=== PATIENT | male | born 1990 | race Caucasian/White ===

== ENCOUNTER 2016-08-13 09:02 | Emergency (ER) | payer BC ==
[~2016-08-13] VITALS: Ht 172.7 cm; Wt 75.5 kg
[~2016-08-13 09:02] MED LIST: NO MEDS
[2016-08-13 09:05] VITALS: Ht 172.7 cm; Wt 75.5 kg
--- OUTSIDE RECORDS SUMMARY | 2016-08-13 09:07 | XMS REPORT ---
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
--- OUTSIDE RECORDS SUMMARY | 2016-08-13 09:07 | XMS REPORT | Continuity of Care Document ---
Author Author [facility] Organization [facility] Address Unknown Phone Unavailable Support Name Relationship Address Phone SHIMON GILBERT MD Caregiver [address] [place] [address] [place] [phone] BROOKLYN ARVIZU Next Of Kin [address] [place] [address] Insurance Providers Payer Name Policy Number Subscriber Name Relationship Self Pay Bakari Arvizu Iii 18 Self Advance Directives Directive Response Recorded Date/Time Advanced Directives Type None 02/08/14 1:32pm Problems Medical Problems Problem Onset Date Status 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 Nausea Unknown Active Nausea Unknown Active Sprain of right index finger Unknown Active Contusion of right index finger without damage to nail Unknown Active Contusion of left heel Unknown Active Sprain of left ankle Unknown Active Medications Medication Dose Route Sig Days/Qty Instructions Order Date Discontinued Date Status [None] 06/08/09 09/04/13 Discontinued Hydrocodone Bit/Acetaminophen 1 Tab PO NEEDED 06/10/09 04/01/12 Discontinued [No Known Meds] 02/08/14 Active Social History Social History Problem Response Recorded Date/Time Smoking Status Current every day smoker 09/04/2013 12:45am When did patient START smoking? AGE 15 02/08/2014 1:32pm Chewing Tobacco Status No 09/04/2013 12:45am Hx Substance Use Y SMOKES MARIJUANA OCCAS, IV SPEED AND IV HYDROCODONE 2013 1:32pm Hx Alcohol Use Y 2-3 TIMES A WEEK, "USUALLY JUST BEER", VODKA 02/08/2014 1:32pm Query Response Start Date Stop Date Smoking Status Current every day smoker Hospital Discharge Instructions No hospital discharge instructions. Plan of Care No plan of care. Functional Status Query Response Date Recorded Physical Hygiene Self February 08, 2014 1:32pm Disabilities None February 08, 2014 1:32pm Devices Used None February 08, 2014 1:32pm Dressing Self February 08, 2014 1:32pm Ambulation Self February 08, 2014 1:32pm Diet Self February 08, 2014 1:32pm Mental Status Alert Oriented February 08, 2014 2:46pm Disabilities None February 08, 2014 1:32pm Devices Used None February 08, 2014 1:32pm Physical Hygiene Self February 08, 2014 1:32pm Dressing Self February 08, 2014 1:32pm Ambulation Self February 08, 2014 1:32pm Diet Self February 08, 2014 1:32pm Allergies, Adverse Reactions, Alerts Allergen Type Severity Reaction Status Last Updated No Known Drug Allergies Allergy Unknown Active 02/08/14 Immunizations Name Given Type Hx Influenza Vaccination N REFUSED Historical Hx Pneumococcal Vaccination N REFUSED Historical Hx Tetanus, Diptheria, Pertussis UNKNOWN Historical Hx Influenza Vaccination N REFUSED Historical Hx Tetanus, Diptheria, Pertussis UNKNOWN Historical Vital Signs Acute Vital Signs Vital Response Date/Time Temperature (Fahrenheit) 98.0 deg F (96.8 - 99.1) Temperature (Calculated Celsius) 36.70396 degrees C (36.0 - 37.3) Pulse Rate (adult) 96 bpm (60 - 100) Respiratory Rate 18 breaths/min (10 - 20) O2 Sat by Pulse Oximetry 97 % (90 - 100) Blood Pressure 131/71 mm Hg Height 5 ft 8 in Weight 167 lb Body Mass Index 25.0 kg/m^2 Results Test Source Date Result Interp. Ref. Range Comments Acetaminophen Level April 01, 2012 1:55am < 10 UG/ML L 10-30 TOXIC < 4 HR POST INGESTION: >150 MG/L;TOXIC <12 HR POST INGESTION: >50 MG/L Alanine Aminotransferase (ALT/SGPT) April 01, 2012 12:25pm 273 U/L H 21-72 COMMENT may use blood in lab Albumin April 01, 2012 12:25pm 3.9 G/DL N 3.5-5.0 COMMENT may use blood in lab Albumin/Globulin Ratio April 01, 2012 12:25pm 1.3 RATIO N 1.1-2.2 COMMENT may use blood in lab Alcohol, Quantitative April 01, 2012 1:55am <10 MG/DL - Alkaline Phosphatase April 01, 2012 12:25pm 89 U/L N 38-126 COMMENT may use blood in lab Anion Gap April 01, 2012 12:25pm 8 MEQ/L N 5-15 COMMENT may use blood in lab Aspartate Amino Transf (AST/SGOT) April 01, 2012 12:25pm 122 U/L H 17 -59 COMMENT may use blood in lab BUN/Creatinine Ratio April 01, 2012 12:25pm 14 RATIO N 6-26 COMMENT may use blood in lab Band Neutrophils # April 01, 2012 6:50am 0.5 T/MM3 - Band Neutrophils % April 01, 2012 6:50am 3.0 % N 0-6 Blood Urea Nitrogen April 01, 2012 12:25pm 10.0 MG/DL N 9-20 COMMENT may use blood in lab Calcium Level April 01, 2012 12:25pm 9.0 MG/DL DN 8.4-10.2 COMMENT may use blood in lab Calculated Osmolality April 01, 2012 12:25pm 269 MOSM/KG N 261-280 COMMENT may use blood in lab Carbon Dioxide Level April 01, 2012 12:25pm 24 MEQ/L DN 22-30 COMMENT may use blood in lab Chloride Level April 01, 2012 12:25pm 109 MEQ/L H 98-107 COMMENT may use blood in lab Creatinine April 01, 2012 12:25pm 0.7 MG/DL DL 0.8-1.5 COMMENT may use blood in lab Globulin April 01, 2012 12:25pm 3.0 G/DL N 2.4-3.6 COMMENT may use blood in lab Glucose Level April 01, 2012 12:25pm 78 MG/DL N 75-110 COMMENT may use blood in lab Hematocrit April 01, 2012 6:50am 44.7 % N 41-53 Hemoglobin April 01, 2012 6:50am 14.9 GM/DL N 13.5-17.5 Lymphocytes # (Manual) April 01, 2012 6:50am 3.0 T/MM3 N 1-4.8 Lymphocytes % (Manual) April 01, 2012 6:50am 18.0 % L 23-45 Mean Corpuscular Hemoglobin April 01, 2012 6:50am 27.9 UUG N 26-34 Mean Corpuscular Hemoglobin Concent April 01, 2012 6:50am 33.3 GM/DL N 31-37 Mean Corpuscular Volume April 01, 2012 6:50am 83.6 UM3 N 80-100 Mean Platelet Volume April 01, 2012 6:50am 11.1 UM3 N 9.4-12.4 Monocytes # (Manual) April 01, 2012 6:50am 1.0 T/MM3 H 0-0.8 Monocytes % (Manual) April 01, 2012 6:50am 6.0 % N 0-9.0 Neutrophils # (Manual) April 01, 2012 6:50am 12.0 T/MM3 H 1.8-7.7 Neutrophils % (Manual) April 01, 2012 6:50am 73.0 % H 33-66 Platelet Count April 01, 2012 6:50am 108 T/MM3 DL 130-400 Potassium Level April 01, 2012 12:25pm 4.8 MEQ/L DN 3.6-5 COMMENT may use blood in lab RDW Standard Deviation April 01, 2012 6:50am 41.8 FL N 36.9-50.2 Red Blood Count April 01, 2012 6:50am 5.35 M/MM3 N 4.50-5.90 Salicylates Level April 01, 2012 1:55am < 1.0 MG/DL L 2-20 Sodium Level April 01, 2012 12:25pm 141 MEQ/L N 134-144 COMMENT may use blood in lab Thyroid Stimulating Hormone (TSH) April 01, 2012 12:25pm 1.75 MIU/L N 0.47-4.68 COMMENT may use blood in lab Total Bilirubin April 01, 2012 12:25pm 1.00 MG/DL N 0.20-1.30 COMMENT may use blood in lab Total Protein April 01, 2012 12:25pm 6.9 G/DL N 6.3-8.2 COMMENT may use blood in lab Troponin I April 01, 2012 1:55am < 0.012 ng/ml 0-0.12 Urine Amphetamines Screen April 01, 2012 1:55am Positive NG/ML - Urine Barbiturates Screen April 01, 2012 1:55am Negative NG/ML - Urine Benzodiazepines Screen April 01, 2012 1:55am Negative NG/ML - Urine Bilirubin April 01, 2012 2:00am Negative - Has specimen been collected/obtained? Y Urine Blood April 01, 2012 2:00am Negative - Has specimen been collected/obtained? Y Urine Cocaine Screen April 01, 2012 1:55am Negative NG/ML - Urine Collection Type April 01, 2012 2:00am Voided - Has specimen been collected/obtained? Y Urine Color April 01, 2012 2:00am Yellow - Has specimen been collected/obtained? Y Urine Drug Screen Confirmation April 01, 2012 2:19am Sent out - Urine Glucose (UA) April 01, 2012 2:00am Negative - Has specimen been collected/obtained? Y Urine Hyaline Casts April 01, 2012 2:00am 5-10 /LPF - Has specimen been collected/obtained? Y Urine Ketones April 01, 2012 2:00am 2+ H - Has specimen been collected/obtained? Y Urine Leukocyte Esterase April 01, 2012 2:00am Negative - Has specimen been collected/obtained? Y Urine Mucus April 01, 2012 2:00am Present - Has specimen been collected/obtained? Y Urine Nitrite April 01, 2012 2:00am Negative - Has specimen been collected/obtained? Y Urine Opiates Screen April 01, 2012 1:55am Positive NG/ML - Urine Protein April 01, 2012 2:00am 2+ H - Has specimen been collected/obtained? Y Urine RBC April 01, 2012 2:00am 0-1 /HPF - Has specimen been collected/obtained? Y Urine Specific [place] April 01, 2012 2:00am 1.025 - Has specimen been collected/obtained? Y Urine Tricyclic Antidepressants April 01, 2012 1:55am Negative NG/ML - Urine Turbidity April 01, 2012 2:00am Clear - Has specimen been collected/obtained? Y Urine Urobilinogen April 01, 2012 2:00am 8 EU/DL H - Has specimen been collected/obtained? Y Urine WBC April 01, 2012 2:00am 0-1 /HPF - Has specimen been collected/obtained? Y Urine pH April 01, 2012 2:00am 6.0 - Has specimen been collected/ obtained? Y White Blood Count April 01, 2012 6:50am 16.5 T/MM3 H 4.5-11.0 Lab Scanned Report April 04, 2012 3:52pm REFERENCE LAB [id number] - Urine Methadone Screen April 01, 2012 1:55am Negative NG/ML - Urine Cannabinoids Screen April 01, 2012 1:55am Negative NG/ML - Glomerular Filtration Rate Calc April 01, 2012 12:25pm 141 - COMMENT may use blood in lab Name: BAKARI ARVIZU III Unit #: [id number] : 1990 Sex: M Loc / Svc: ED DOS: 02/08/14 Signed Report #: [id number] DIAGNOSTIC IMAGING REPORT TYPE OF EXAM: HAND RIGHT 3 VIEW Dictated By: TEE NIEVES MD INDICATION: ITS.REASON: pain, attn 2nd digit and 2nd/3rd metacarpals HAND RIGHT 3 VIEW: IMPRESSION: No fracture or dislocation is identified. No focal osseous lesions are demonstrated. No bony or soft tissue abnormalities are seen. No erosions or inflammatory lesions are seen. Probable old fracture or osseous insult to the proximal fourth metacarpal. . Procedures No known history of procedures. Encounters Encounter Location Date/Time Departed Emergency Room [facility] 02/08/14 12:05pm Recent Diagnosis
--- OUTSIDE RECORDS SUMMARY | 2016-08-13 09:07 | XMS REPORT | Continuity of Care Document ---
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 Nausea Unknown Active Nausea Unknown Active Sprain of right index finger Unknown Active Contusion of right index finger without damage to nail Unknown Active Contusion of left heel Unknown Active Sprain of left ankle Unknown Active Sprain of right index finger Unknown Active Alcohol intoxication Unknown Active Alcohol intoxication Unknown Active Patient left without being seen Unknown Active Substance abuse Unknown Active Anal or rectal pain Unknown Active Medications Medication Dose Route Sig Days/Qty Instructions Order Date Discontinued Date Status [None] 06/08/09 09/04/13 Discontinued Hydrocodone Bit/Acetaminophen 1 Tab PO NEEDED 06/10/09 04/01/12 Discontinued Social History Social History Problem Response Recorded Date/Time Chewing Tobacco Status No 09/04/2013 12:45am Hx Substance Use Y SMOKES MARIJUANA OCCAS, IV SPEED AND IV HYDROCODONE 2014 4:24pm Hx Alcohol Use Y 08/18/14 1/2 [place] .... 08/27/2014 4:24pm Tobacco Usage smoke 02/08/2014 1:50pm Query Response Start Date Stop Date Smoking Status Current every day smoker Hospital Discharge Instructions No hospital discharge instructions. Plan of Care No plan of care. Functional Status Query Response Date Recorded Physical Hygiene Self August 27, 2014 4:24pm Disabilities None August 27, 2014 4:24pm Devices Used None August 27, 2014 4:24pm Dressing Self August 27, 2014 4:24pm Ambulation Self August 27, 2014 4:24pm Diet Self August 27, 2014 4:24pm Mental Status Alert Oriented August 27, 2014 9:14pm Disabilities None August 27, 2014 4:24pm Devices Used None August 27, 2014 4:24pm Physical Hygiene Self August 27, 2014 4:24pm Dressing Self August 27, 2014 4:24pm Ambulation Self August 27, 2014 4:24pm Diet Self August 27, 2014 4:24pm Allergies, Adverse Reactions, Alerts Allergen Type Severity Reaction Status Last Updated No Known Drug Allergies Allergy Unknown Active 02/08/14 Immunizations Name Given Type Hx Influenza Vaccination N REFUSED Historical Hx Pneumococcal Vaccination N REFUSED Historical Hx Tetanus, Diptheria, Pertussis UNKNOWN Historical Hx Influenza Vaccination N REFUSED Historical Hx Tetanus, Diptheria, Pertussis UNKNOWN Historical Vital Signs Acute Vital Signs Vital Response Date/Time Temperature (Fahrenheit) 98.4 deg F (96.8 - 99.1) Temperature (Calculated Celsius) 36.31490 degrees C (36.0 - 37.3) Pulse Rate (adult) 111 bpm (60 - 100) Respiratory Rate 16 breaths/min (10 - 20) O2 Sat by Pulse Oximetry 98 % (90 - 100) Blood Pressure 154/70 mm Hg Height 5 ft 8 in Weight 160 lb Body Mass Index 24.0 kg/m^2 Results Test Source Date Result Interp. Ref. Range Comments Acetaminophen Level August 27, 2014 7:22pm < 10 UG/ML L 10-30 TOXIC <4 HR POST INGESTION: >150 MG/L;TOXIC <12 HR POST INGESTION: >50 MG/L Alanine Aminotransferase (ALT/SGPT) August 27, 2014 7:22pm 263 U/L H 21- 72 Albumin August 27, 2014 7:22pm 4.4 G/DL N 3.5-5.0 Albumin/Globulin Ratio August 27, 2014 7:22pm 1.4 RATIO N 1.1-2.2 Alcohol, Quantitative August 27, 2014 7:22pm <10 MG/DL - Alkaline Phosphatase August 27, 2014 7:22pm 97 U/L N 38-126 Anion Gap August 27, 2014 7:22pm 14 MEQ/L N 5-15 Aspartate Amino Transf (AST/SGOT) August 27, 2014 7:22pm 190 U/L H 17-59 BUN/Creatinine Ratio August 27, 2014 7:22pm 24 RATIO N 6-26 Band Neutrophils # April 01, 2012 6:50am 0.5 T/MM3 - Band Neutrophils % April 01, 2012 6:50am 3.0 % N 0-6 Basophils # (Auto) August 27, 2014 7:22pm 0.0 T/MM3 N 0-0.2 Basophils (%) (Auto) August 27, 2014 7:22pm 0.3 % N 0-2 Blood Urea Nitrogen August 27, 2014 7:22pm 19.0 MG/DL N 9-20 Calcium Level August 27, 2014 7:22pm 9.4 MG/DL N 8.4-10.2 Calculated Osmolality August 27, 2014 7:22pm 274 MOSM/KG N 261-280 Carbon Dioxide Level August 27, 2014 7:22pm 24 MEQ/L N 22-30 Chemistry Specimen Hemolysis August 27, 2014 7:22pm < 15 0-25 0-25: No Hemolysis.26-70: Slight Hemolysis - can falsely elevate K and Urine Protein. 71-285: Moderate Hemolysis - can falsely elevate K, Troponin I, CA 19-9, PTH, CSF GLucose, and Urine Protein, and can falsely decrease Phenytoin. 286-999: Gross Hemolysis - can falsely elevate K, Troponin I, CA 19-9, PTH, CSF Glucose, and Urine Protine, and can falsely decrease Phenytoin. Recommend specimen recollection. Chloride Level August 27, 2014 7:22pm 103 MEQ/L N 98-107 Creatinine August 27, 2014 7:22pm 0.8 MG/DL N 0.8-1.5 Eosinophils # (Auto) August 27, 2014 7:22pm 0.1 T/MM3 N 0-0.5 Eosinophils (%) (Auto) August 27, 2014 7:22pm 0.9 % N 0-4 Globulin August 27, 2014 7:22pm 3.1 G/DL N 2.4-3.6 Glomerular Filtration Rate Calc August 27, 2014 7:22pm 119 - Glucose Level August 27, 2014 7:22pm 108 MG/DL N 75-110 Hematocrit August 27, 2014 7:22pm 45.0 % N 41-53 Hemoglobin August 27, 2014 7:22pm 15.0 GM/DL N 13.5-17.5 Icterus Index August 27, 2014 7:22pm < 2 0-7 Immature Granulocyte # (Auto) August 27, 2014 7:22pm 0.01 T/MM3 N 0.00- 0.03 Immature Granulocyte % (Auto) August 27, 2014 7:22pm 0.1 % N 0.0-0.5 Lab Scanned Report February 15, 2014 5:09am [facility] LAB [id number] - Lymphocytes # (Auto) August 27, 2014 7:22pm 2.6 T/MM3 N 1-4.8 Lymphocytes # (Manual) April 01, 2012 6:50am 3.0 T/MM3 N 1-4.8 Lymphocytes % (Manual) April 01, 2012 6:50am 18.0 % L 23-45 Lymphocytes (%) (Auto) August 27, 2014 7:22pm 28.1 % N 23-45 Mean Corpuscular Hemoglobin August 27, 2014 7:22pm 28.5 UUG N 26-34 Mean Corpuscular Hemoglobin Concent August 27, 2014 7:22pm 33.3 GM/DL N 31-37 Mean Corpuscular Volume August 27, 2014 7:22pm 85.4 UM3 N 80-100 Mean Platelet Volume August 27, 2014 7:22pm 9.6 UM3 N 9.4-12.4 Monocytes # (Auto) August 27, 2014 7:22pm 0.8 T/MM3 N 0-0.8 Monocytes # (Manual) April 01, 2012 6:50am 1.0 T/MM3 H 0-0.8 Monocytes % (Manual) April 01, 2012 6:50am 6.0 % N 0-9.0 Monocytes (%) (Auto) August 27, 2014 7:22pm 8.3 % N 0-9.0 Neutrophils # (Auto) August 27, 2014 7:22pm 5.7 T/MM3 N 1.8-7.7 Neutrophils # (Manual) April 01, 2012 6:50am 12.0 T/MM3 H 1.8-7.7 Neutrophils % (Manual) April 01, 2012 6:50am 73.0 % H 33-66 Neutrophils (%) (Auto) August 27, 2014 7:22pm 62.3 % N 33-66 Platelet Count August 27, 2014 7:22pm 236 T/MM3 N 130-400 Potassium Level August 27, 2014 7:22pm 3.5 MEQ/L L 3.6-5 RDW Standard Deviation August 27, 2014 7:22pm 41.3 FL N 36.9-50.2 Red Blood Count August 27, 2014 7:22pm 5.27 M/MM3 N 4.50-5.90 Salicylates Level August 27, 2014 7:22pm < 1.0 MG/DL L 2-20 Sodium Level August 27, 2014 7:22pm 141 MEQ/L N 134-144 Thyroid Stimulating Hormone (TSH) April 01, 2012 12:25pm 1.75 MIU/L N 0.47-4.68 COMMENT may use blood in lab Total Bilirubin August 27, 2014 7:22pm 0.70 MG/DL N 0.20-1.30 Total Protein August 27, 2014 7:22pm 7.5 G/DL N 6.3-8.2 Troponin I April 01, 2012 1:55am < 0.012 ng/ml 0-0.12 Turbidity August 27, 2014 7:22pm < 20 0-20 Urinalysis Comment August 27, 2014 7:39pm Microscopic not ind. - Has specimen been collected/obtained? Y Urine Bilirubin August 27, 2014 7:39pm Negative - Has specimen been collected/obtained? Y Urine Blood August 27, 2014 7:39pm Negative - Has specimen been collected/obtained? Y Urine Collection Type August 27, 2014 7:39pm Voided-not cc-midstr - Has specimen been collected/obtained? Y Urine Color August 27, 2014 7:39pm Yellow - Has specimen been collected/obtained? Y Urine Glucose (UA) August 27, 2014 7:39pm Negative - Has specimen been collected/obtained? Y Urine Hyaline Casts April 01, 2012 2:00am 5-10 /LPF - Has specimen been collected/obtained? Y Urine Ketones August 27, 2014 7:39pm 1+ H - Has specimen been collected/ obtained? Y Urine Leukocyte Esterase August 27, 2014 7:39pm Negative - Has specimen been collected/obtained? Y Urine Mucus April 01, 2012 2:00am Present - Has specimen been collected/obtained? Y Urine Nitrite August 27, 2014 7:39pm Negative - Has specimen been collected/obtained? Y Urine Protein August 27, 2014 7:39pm Negative - Has specimen been collected/obtained? Y Urine RBC April 01, 2012 2:00am 0-1 /HPF - Has specimen been collected/obtained? Y Urine Specific Red Level August 27, 2014 7:39pm >=1.030 H - Has specimen been collected/obtained? Y Urine Turbidity August 27, 2014 7:39pm Clear - Has specimen been collected/obtained? Y Urine Urobilinogen August 27, 2014 7:39pm 0.2 EU/DL - Has specimen been collected/obtained? Y Urine WBC April 01, 2012 2:00am 0-1 /HPF - Has specimen been collected/obtained? Y Urine pH August 27, 2014 7:39pm 5.5 - Has specimen been collected/ obtained? Y White Blood Count August 27, 2014 7:22pm 9.1 T/MM3 N 4.5-11.0 Procedures No known history of procedures. Encounters Encounter Location Date/Time Departed Emergency Room [facility] 08/27/14 4:24pm Departed Emergency Room [facility] 08/22/14 12:25am Recent Diagnosis
--- OUTSIDE RECORDS SUMMARY | 2016-08-13 09:07 | XMS REPORT | Continuity of Care Document ---
Author Author [facility] Organization [facility] Address Unknown Phone Unavailable Support Name Relationship Address Phone KYLER ARVIZU MD Caregiver [address] [place] [address] [place] [phone] BROOKLYN SIERRA Next [place] [address] NONE Insurance Providers Payer Name Policy Number Subscriber [...] Patient left without being seen Unknown Active Medications Medication Dose Route Sig Days/Qty Instructions Order Date Discontinued Date Status [None] 06/08/09 09/04/13 Discontinued Hydrocodone Bit/Acetaminophen 1 Tab PO NEEDED 06/10/09 04/01/12 Discontinued Social History Social History Problem Response Recorded Date/Time Chewing Tobacco Status No 09/04/2013 12:45am Hx Substance Use Y SMOKES MARIJUANA OCCAS, IV SPEED AND IV HYDROCODONE 2013 11:27pm Hx Alcohol Use Y 2-3 TIMES A WEEK, "USUALLY JUST BEER", VODKA 02/14/2014 11:27pm Tobacco Usage smoke 02/08/2014 1:50pm Query Response Start Date Stop Date Smoking Status Current every day smoker Hospital Discharge Instructions No hospital discharge instructions. Plan of Care No plan of care. Functional Status Query Response Date Recorded Physical Hygiene Self February 14, 2014 11:27pm Physical Hygiene Self February 14, 2014 11:27pm Allergies, Adverse Reactions, Alerts Allergen Type Severity Reaction Status Last Updated No Known Drug Allergies Allergy Unknown Active 02/08/14 Immunizations Name Given Type Hx Influenza Vaccination N REFUSED Historical Hx Pneumococcal Vaccination N REFUSED Historical Hx Tetanus, Diptheria, Pertussis UNKNOWN Historical Hx Influenza Vaccination N REFUSED Historical Hx Tetanus, Diptheria, Pertussis UNKNOWN Historical Vital Signs No known vital signs results. Results Test Source Date Result Interp. Ref. Range Comments Acetaminophen Level February 14, 2014 10:30pm < 10 UG/ML L 10-30 TOXIC <4 HR POST INGESTION: >150 MG/L;TOXIC <12 HR POST INGESTION: >50 MG/L Alanine Aminotransferase (ALT/SGPT) February 14, 2014 10:30pm 74 U/L H 21-72 Albumin February 14, 2014 10:30pm 4.4 G/DL N 3.5-5.0 Albumin/Globulin Ratio February 14, 2014 10:30pm 1.5 RATIO N 1.1-2.2 Alcohol, Quantitative February 14, 2014 10:30pm 252 MG/DL - Alkaline Phosphatase February 14, 2014 10:30pm 98 U/L N 38-126 Anion Gap February 14, 2014 10:30pm 16 MEQ/L H 5-15 Aspartate Amino Transf (AST/SGOT) February 14, 2014 10:30pm 39 U/L N 17 -59 BUN/Creatinine Ratio February 14, 2014 10:30pm 18 RATIO N 6-26 Band Neutrophils # April 01, 2012 6:50am 0.5 T/MM3 - Band Neutrophils % April 01, 2012 6:50am 3.0 % N 0-6 Basophils # (Auto) February 14, 2014 10:30pm 0.0 T/MM3 N 0-0.2 Basophils (%) (Auto) February 14, 2014 10:30pm 0.2 % N 0-2 Blood Urea Nitrogen February 14, 2014 10:30pm 14.0 MG/DL N 9-20 Calcium Level February 14, 2014 10:30pm 9.6 MG/DL N 8.4-10.2 Calculated Osmolality February 14, 2014 10:30pm 282 MOSM/KG H 261-280 Carbon Dioxide Level February 14, 2014 10:30pm 26 MEQ/L N 22-30 Chloride Level February 14, 2014 10:30pm 104 MEQ/L N 98-107 Creatinine February 14, 2014 10:30pm 0.8 MG/DL N 0.8-1.5 Eosinophils # (Auto) February 14, 2014 10:30pm 0.1 T/MM3 N 0-0.5 Eosinophils (%) (Auto) February 14, 2014 10:30pm 0.9 % N 0-4 Globulin February 14, 2014 10:30pm 2.9 G/DL N 2.4-3.6 Glucose Level February 14, 2014 10:30pm 99 MG/DL N 75-110 Hematocrit February 14, 2014 10:30pm 44.1 % N 41-53 Hemoglobin February 14, 2014 10:30pm 14.7 GM/DL N 13.5-17.5 Lymphocytes # (Auto) February 14, 2014 10:30pm 2.6 T/MM3 N 1-4.8 Lymphocytes # (Manual) April 01, 2012 6:50am 3.0 T/MM3 N 1-4.8 Lymphocytes % (Manual) April 01, 2012 6:50am 18.0 % L 23-45 Lymphocytes (%) (Auto) February 14, 2014 10:30pm 20.6 % L 23-45 Mean Corpuscular Hemoglobin February 14, 2014 10:30pm 28.9 UUG N 26-34 Mean Corpuscular Hemoglobin Concent February 14, 2014 10:30pm 33.3 GM/DL N 31-37 Mean Corpuscular Volume February 14, 2014 10:30pm 86.8 UM3 N 80-100 Mean Platelet Volume February 14, 2014 10:30pm 9.3 UM3 L 9.4-12.4 Monocytes # (Auto) February 14, 2014 10:30pm 0.8 T/MM3 N 0-0.8 Monocytes # (Manual) April 01, 2012 6:50am 1.0 T/MM3 H 0-0.8 Monocytes % (Manual) April 01, 2012 6:50am 6.0 % N 0-9.0 Monocytes (%) (Auto) February 14, 2014 10:30pm 6.6 % N 0-9.0 Neutrophils # (Auto) February 14, 2014 10:30pm 8.8 T/MM3 H 1.8-7.7 Neutrophils # (Manual) April 01, 2012 6:50am 12.0 T/MM3 H 1.8-7.7 Neutrophils % (Manual) April 01, 2012 6:50am 73.0 % H 33-66 Neutrophils (%) (Auto) February 14, 2014 10:30pm 71.3 % H 33-66 Platelet Count February 14, 2014 10:30pm 247 T/MM3 N 130-400 Potassium Level February 14, 2014 10:30pm 3.7 MEQ/L N 3.6-5 RDW Standard Deviation February 14, 2014 10:30pm 40.9 FL N 36.9-50.2 Red Blood Count February 14, 2014 10:30pm 5.08 M/MM3 N 4.50-5.90 Salicylates Level February 14, 2014 10:30pm < 1.0 MG/DL L 2-20 Sodium Level February 14, 2014 10:30pm 146 MEQ/L H 134-144 Thyroid Stimulating Hormone (TSH) April 01, 2012 12:25pm 1.75 MIU/L N 0.47-4.68 COMMENT may use blood in lab Total Bilirubin February 14, 2014 10:30pm 0.30 MG/DL N 0.20-1.30 Total Protein February 14, 2014 10:30pm 7.3 G/DL N 6.3-8.2 Troponin I April 01, 2012 1:55am < 0.012 ng/ml 0-0.12 Urine Bilirubin February 14, 2014 11:30pm Negative - Has specimen been collected/obtained? Y Urine Blood February 14, 2014 11:30pm Negative - Has specimen been collected/obtained? Y Urine Collection Type February 14, 2014 11:30pm Cleancatch-midstream - Has specimen been collected/obtained? Y Urine Color February 14, 2014 11:30pm Yellow - Has specimen been collected/obtained? Y Urine Drug Screen Confirmation April 01, 2012 2:19am Sent out - Urine Glucose (UA) February 14, 2014 11:30pm Negative - Has specimen been collected/obtained? Y Urine Hyaline Casts April 01, 2012 2:00am 5-10 /LPF - Has specimen been collected/obtained? Y Urine Ketones February 14, 2014 11:30pm Negative - Has specimen been collected/obtained? Y Urine Leukocyte Esterase February 14, 2014 11:30pm Negative - Has specimen been collected/obtained? Y Urine Mucus April 01, 2012 2:00am Present - Has specimen been collected/obtained? Y Urine Nitrite February 14, 2014 11:30pm Negative - Has specimen been collected/obtained? Y Urine Protein February 14, 2014 11:30pm Negative - Has specimen been collected/obtained? Y Urine RBC April 01, 2012 2:00am 0-1 /HPF - Has specimen been collected/obtained? Y Urine Specific [place] February 14, 2014 11:30pm 1.010 L - Has specimen been collected/obtained? Y Urine Turbidity February 14, 2014 11:30pm Clear - Has specimen been collected/obtained? Y Urine Urobilinogen February 14, 2014 11:30pm 0.2 EU/DL - Has specimen been collected/obtained? Y Urine WBC April 01, 2012 2:00am 0-1 /HPF - Has specimen been collected/obtained? Y Urine pH February 14, 2014 11:30pm 5.5 - Has specimen been collected /obtained? Y White Blood Count February 14, 2014 10:30pm 12.4 T/MM3 H 4.5-11.0 Chemistry Specimen Hemolysis February 14, 2014 10:30pm < 15 0-25 0- 25: No Hemolysis.26-70: Slight Hemolysis - can falsely elevate K and Urine Protein. 71-285: Moderate Hemolysis - can falsely elevate K, Troponin I, CA 19-9, PTH, CSF GLucose, and Urine Protein, and can falsely decrease Phenytoin. 286-999: Gross Hemolysis - can falsely elevate K, Troponin I, CA 19-9, PTH, CSF Glucose, and Urine Protine, and can falsely decrease Phenytoin. Recommend specimen recollection. Urinalysis Comment February 14, 2014 11:30pm Microscopic not ind. - Has specimen been collected/obtained? Y Lab Scanned Report February 15, 2014 5:09am [facility] [id number] - Turbidity February 14, 2014 10:30pm < 20 0-20 Glomerular Filtration Rate Calc February 14, 2014 10:30pm 120 - Immature Granulocyte # (Auto) February 14, 2014 10:30pm 0.05 T/MM3 H 0.00-0.03 Immature Granulocyte % (Auto) February 14, 2014 10:30pm 0.4 % N 0.0- 0.5 Icterus Index February 14, 2014 10:30pm < 2 0-7 Procedures No known history of procedures. Encounters Encounter Location Date/Time Departed Emergency Room [facility] 08/22/14 12:25am Recent Diagnosis
--- OUTSIDE RECORDS SUMMARY | 2016-08-13 09:07 | XMS REPORT | Continuity of Care Document ---
Author Author [facility] Organization [facility] Address Unknown Phone Unavailable Support Name Relationship Address Phone KG SAM DO Caregiver [facility] [address] [place] [phone] [place] [address] NONE Insurance Providers Payer Name Policy Number Subscriber Name Relationship Self Pay Nolberto Bakari Turcios Darrel 18 Self Advance Directives Directive Response Recorded Date/Time Advanced Directives Type None 02/14/14 10:07pm Problems Medical Problems Problem Onset Date Status [...] intoxication Unknown Active Alcohol intoxication Unknown Active Medications Medication Dose Route Sig Days/Qty Instructions Order Date Discontinued Date Status [None] 06/08/09 09/04/13 Discontinued Hydrocodone Bit/Acetaminophen 1 Tab PO NEEDED 06/10/09 04/01/12 Discontinued Social History Social History Problem Response Recorded Date/Time Smoking Status Current every day smoker 09/04/2013 12:45am Chewing Tobacco Status No 09/04/2013 12:45am Hx Substance Use Y SMOKES MARIJUANA OCCAS, IV SPEED AND IV HYDROCODONE 2013 11:27pm Hx Alcohol Use Y 2-3 TIMES A WEEK, "USUALLY JUST BEER", VODKA 02/14/2014 11:27pm Query Response Start Date Stop Date Smoking Status Current every day smoker Hospital Discharge Instructions No hospital discharge instructions. Plan of Care No plan of care. Functional Status Query Response Date Recorded Physical Hygiene Self February 14, 2014 11:27pm Disabilities None February 14, 2014 11:27pm Devices Used None February 14, 2014 11:27pm Dressing Self February 14, 2014 11:27pm Ambulation Self February 14, 2014 11:27pm Diet Self February 14, 2014 11:27pm Mental Status Alert Oriented February 14, 2014 11:59pm Disabilities None February 14, 2014 11:27pm Devices Used None February 14, 2014 11:27pm Physical Hygiene Self February 14, 2014 11:27pm Dressing Self February 14, 2014 11:27pm Ambulation Self February 14, 2014 11:27pm Diet Self February 14, 2014 11:27pm Allergies, Adverse [...] Vital Signs Vital Response Date/Time Temperature (Fahrenheit) 97.8 deg F (96.8 - 99.1) Temperature (Calculated Celsius) 36.45028 degrees C (36.0 - 37.3) Pulse Rate (adult) 102 bpm (60 - 100) Respiratory Rate 19 breaths/min (10 - 20) O2 Sat by Pulse Oximetry 100 % (90 - 100) Blood Pressure 123/71 mm Hg Height 5 ft 7 in Weight 168 lb Body Mass Index 26.0 kg/m^2 Results Test Source Date Result Interp. [...] Has specimen been collected/obtained? Y Urine Specific [place] February 14, 2014 11:30pm 1.010 L - [...] specimen been collected/obtained? Y Lab Scanned Report April 04, 2012 3:52pm [facility] [id number] - Turbidity February 14, 2014 10:30pm < 20 0-20 Glomerular Filtration Rate Calc February 14, 2014 10:30pm 120 - Immature Granulocyte # (Auto) February 14, 2014 10:30pm 0.05 T/MM3 H 0.00-0.03 Immature Granulocyte % (Auto) February 14, 2014 10:30pm 0.4 % N 0.0- 0.5 Icterus Index February 14, 2014 10:30pm < 2 0-7 Name: BAKARI ARVIZU III Unit #: [id number] : 1990 Sex: M Loc / Svc: ED DOS: 02/08/14 Signed Report #: [id number] DIAGNOSTIC IMAGING REPORT TYPE OF EXAM: HAND [...] to the proximal fourth metacarpal. . Procedures Procedure Status Date Provider(s) APPLICATION OF FINGER SPLINT completed 02/08/14 SHIMON GILBERT MD Encounters Encounter Location Date/Time Departed Emergency Room [facility] 02/14/14 10:07pm Departed Emergency Room [facility] 02/08/14 12:05pm Recent Diagnosis
[2016-08-13] MEDS ORDERED: NORMAL SALINE 1,000 ML IV ONE (09:30)
[2016-08-13] MEDS ORDERED: NO ROUTINE MEDS (09:36)
--- OUTSIDE RECORDS SUMMARY | 2016-08-13 09:53 | XMS REPORT | Continuity of Care Document ---
Author Author [facility] Organization [facility] Address Unknown Phone Unavailable Support Name Relationship Address Phone SHIMON GILBERT MD Caregiver [address] [place] [address] [place] [phone] BROOKLYN ARVIZU Next Of Kin [address] [place] [address] Insurance Providers Payer Name Policy Number Subscriber [...] F (96.8 - 99.1) Temperature (Calculated Celsius) 36.61504 degrees C (36.0 - 37.3) Pulse Rate [...] Has specimen been collected/obtained? Y Urine Specific [place] April 01, 2012 2:00am 1.025 - Has [...] Report April 04, 2012 3:52pm [facility] [id number] - Urine Methadone Screen April 01, 2012 1:55am Negative NG/ML - Urine Cannabinoids Screen April 01, 2012 1:55am Negative NG/ML - Glomerular Filtration Rate Calc April 01, 2012 12:25pm 141 - COMMENT may use blood in lab Name: BAKARI ARVIZU III Unit #: [id number] : 1990 Sex: M Loc / Svc: ED DOS: 02/08/14 Signed Report #: [id number] DIAGNOSTIC IMAGING REPORT TYPE OF EXAM: HAND [...] Encounters Encounter Location Date/Time Departed Emergency Room [facility] 02/08/14 12:05pm Recent Diagnosis
--- OUTSIDE RECORDS SUMMARY | 2016-08-13 09:53 | XMS REPORT | Continuity of Care Document ---
Author Author [facility] Organization [facility] Address Unknown Phone Unavailable Support Name Relationship Address Phone KYLER ARVIZU MD Caregiver [address] [place] [address] [place] [phone] Insurance Providers Payer Name Policy Number Subscriber [...] Hx Alcohol Use Y 08/18/14 1/2 [place] .... 08/27/2014 4:24pm Tobacco Usage smoke 02/08/2014 [...] F (96.8 - 99.1) Temperature (Calculated Celsius) 36.77417 degrees C (36.0 - 37.3) Pulse Rate [...] Report February 15, 2014 5:09am [facility] [id number] - Lymphocytes # (Auto) August 27, 2014 [...] Has specimen been collected/obtained? Y Urine Specific [place] August 27, 2014 7:39pm >=1.030 H - [...] Encounters Encounter Location Date/Time Departed Emergency Room [facility] 08/27/14 4:24pm Departed Emergency Room [facility] 08/22/14 12:25am Recent Diagnosis
--- OUTSIDE RECORDS SUMMARY | 2016-08-13 09:53 | XMS REPORT | Continuity of Care Document ---
Author Author [facility] Organization [facility] Address Unknown Phone Unavailable Support Name Relationship Address Phone KYLER ARVIZU MD Caregiver [address] [place] [address] [place] [phone] BROKOLYN SIERRA Next [place] [address] NONE Insurance Providers Payer Name Policy Number [...] Has specimen been collected/obtained? Y Urine Specific [place] February 14, 2014 11:30pm 1.010 L - [...] Report February 15, 2014 5:09am [facility] [id number] - Turbidity February 14, 2014 10:30pm < [...] Date/Time Departed Emergency Room [facility] 08/22/14 12:25am Recent Diagnosis
--- OUTSIDE RECORDS SUMMARY | 2016-08-13 09:53 | XMS REPORT | Continuity of Care Document ---
Author Author [facility] Organization [facility] Address Unknown Phone Unavailable Support Name Relationship Address Phone KG SAM DO Caregiver [facility] [address] [place] [phone] [place] Next [place] [address] NONE Insurance Providers Payer Name Policy Number [...] F (96.8 - 99.1) Temperature (Calculated Celsius) 36.48825 degrees C (36.0 - 37.3) Pulse Rate [...] Has specimen been collected/obtained? Y Urine Specific [place] February 14, 2014 11:30pm 1.010 L - [...] Report April 04, 2012 3:52pm [facility] [id number] - Turbidity February 14, 2014 10:30pm < 20 0-20 Glomerular Filtration Rate Calc February 14, 2014 10:30pm 120 - Immature Granulocyte # (Auto) February 14, 2014 10:30pm 0.05 T/MM3 H 0.00-0.03 Immature Granulocyte % (Auto) February 14, 2014 10:30pm 0.4 % N 0.0- 0.5 Icterus Index February 14, 2014 10:30pm < 2 0-7 Name: BAKARI ARVIZU III Unit #: [id number] : 1990 Sex: M Loc / Svc: ED DOS: 02/08/14 Signed Report #: [id number] DIAGNOSTIC IMAGING REPORT TYPE OF EXAM: HAND [...] Date/Time Departed Emergency Room [facility] 02/14/14 10:07pm Departed Emergency Room [facility] 02/08/14 12:05pm Recent Diagnosis
[2016-08-13 10:10] LABS: BASOPHILS % (AUTO) 0.4 % (0-2); EOSINOPHILS # (AUTO) 0.3 T/MM3 (0-0.5); EOSINOPHILS % (AUTO) 2.8 % (0-4); HCT - HEMATOCRIT 42.3 % (41-53); HGB - HEMOGLOBIN 14.3 GM/DL (13.5-17.5); IMMATURE GRANULOCYTE # (AUTO) 0.01 T/MM3 (0.00-0.03); IMMATURE GRANULOCYTE % (AUTO) 0.1 % (0.0-0.5); LYMPHOCYTES # (AUTO) 2.4 T/MM3 (1-4.8); LYMPHOCYTES % (AUTO) 23.7 % (23-45); MEAN CORPUSCULAR HGB 28.2 UUG (26-34); MEAN CORPUSCULAR HGB CONC(MCHC 33.8 GM/DL (31-37); MEAN CORPUSCULAR VOLUME 83.4 UM3 (80-100); MEAN PLATELET VOLUME 9.9 UM3 (9.4-12.4); MONOCYTES # (AUTO) 0.8 T/MM3 (0-0.8); MONOCYTES % (AUTO) 7.8 % (0-9.0); NEUTROPHILS #(AUTO)-ABSOLUTE 6.7 T/MM3 (1.8-7.7); NEUTROPHILS % (AUTO) 65.2 % (33-66); RED BLOOD COUNT 5.07 M/MM3 (4.50-5.90); WBC - WHITE BLOOD COUNT 10.2 T/MM3 (4.5-11.0)
--- NOTE | 2016-08-13 10:10 | NUR ---
IVF IV STARTED AND NS ONFUSING ORDERED
[2016-08-13 10:19] LABS: ALBUMIN 4.2 G/DL (3.5-5.0); ALBUMIN/GLOBULIN RATIO 1.3 RATIO (1.1-2.2); ALKALINE PHOSPHATASE 103 U/L (38-126); ALT (SGPT) 221 U/L (21-72); ANION GAP 11 MEQ/L (5-15); AST (SGOT) 113 U/L (17-59); BUN/CREATININE RATIO 24 RATIO (6-26); CALCIUM 9.7 MG/DL (8.4-10.2); CHLORIDE 106 MEQ/L (98-107); CO2 - CARBON DIOXIDE 28 MEQ/L (22-30); CREATININE 0.7 MG/DL (0.8-1.5); GLOMERULAR FILTRATION RATE 136; GLUCOSE 96 MG/DL (75-110); POTASSIUM 3.3 MEQ/L (3.6-5); SODIUM 145 MEQ/L (134-144); TOTAL PROTEIN 7.4 G/DL (6.3-8.2)
--- NOTE | 2016-08-13 11:00 | NUR ---
LAB LAB HERE FOR UA/UDS. PT NOT ABLE TO VOID. DR SMALL NOTIFIED
--- NOTE | 2016-08-13 11:08 | DI ---
Indication: ITS.REASON: light headed PROCEDURE: CHEST 1 VIEW: Encounter: Initial Comparison: December 19, 2014 FINDINGS: The lungs are clear. There is no abnormal airspace opacity, pleural effusion or pneumothorax identified. The heart size, pulmonary vasculature and mediastinum are within normal limits. No significant skeletal abnormality is seen. IMPRESSION: No acute cardiopulmonary abnormality. .
--- NOTE | 2016-08-13 11:10 | NUR ---
LAB VERBAL ORDER TO CANCEL UA/UDS PER DR SMALL
--- NOTE | 2016-08-13 11:15 | ERPDOC ---
Departure Disposition Decision Date: Aug 13, 2016 Disposition Decision Time: 11:30 Disposition: 01 DISCHARGED HOME, SELF-CARE Impression Impression Impression: Primary Impression: Methamphetamine abuse Severity: Mild Condition: Improved Seen By: Physician only Referrals: [facility] Day Patient Instructions: Methamphetamine Abuse (ED) Problems/Meds/Labs Reviewed?: Yes Medications reviewed and manag: Yes Follow up care ordered?: Yes Mental Status: Alert, Oriented HPI - General Medical General Chief Complaint: Dizzy Stated Complaint: LIGHT HEADED Time Seen by Provider: 09:10 Source: patient Exam Limitations: no limitations HPI - General Medical Initial Comments 26-year-old male presents to the emergency department with a chief complaint of feeling lightheaded. Patient noted onset of symptoms after injecting methamphetamine earlier today. Patient injected methamphetamine approximately 45 minutes prior to arrival to the emergency department today. Patient's symptoms started shortly after using the drug. Patient has a history of similar symptoms approximately one week ago for which he did not seek medical treatment. Patient denies any pain or discomfort. Patient was at home when the symptoms began. Symptoms have been persistent in nature since onset. Patient does not note any exacerbating or remitting factors. No other complaints or associated symptoms. Occurred At: home Onset: Constant Allergies: Coded Allergies: No Known Drug Allergies (Verified Allergy, Unknown, 12/20/14) Past History Past Medical History Pt denies signifigant PMH Hx Echocardiogram: No Psychological: drug abuse Surgical History Denies Surgeries General: other Family History Family History: Negative Vaccines Hx Influenza Vaccination: No (REFUSED) Hx Pneumococcal Vaccination: No (REFUSED) Social History Smoking Status: Current every day smoker Substance Use Type: methamphetamine Substance last used: prior to arrival Alcohol Intake: occasionally Review of Systems Constitutional Constitutional: DENIES: chills, fever Eyes General: DENIES: erythema, exudate Lids/Accessories: DENIES: erythema, swelling Vision: DENIES: acuity, blurring ENMT Ears: DENIES: drainage, pain Hearing: DENIES: hearing loss Balance: DENIES: ataxia, falling to one side Sinuses: DENIES: congestion, pain Nose: DENIES: nosebleeds, pain Mouth/Throat: DENIES: painful swallowing, sore throat Teeth: DENIES: pain Jaw: DENIES: pain Cardiovascular Cardiac: DENIES: chest pain, dyspnea on exertion Rhythm/Rate: DENIES: irregular beat, palpitations Vascular: DENIES: pedal edema, unilateral swelling Pulmonary Respiratory: DENIES: cough, dyspnea, pleuritic chest pain, sputum GI Upper Abdomen: DENIES: nausea, pain, vomiting Lower Abdomen: DENIES: diarrhea, pain General: DENIES: dysuria, pain Musculoskeletal General: DENIES: joint pain, pain, tenderness Integumentary Skin: DENIES: itching, rash Neurological General: DENIES: headache, numbness, weakness Psychiatric Psychiatric: DENIES: emotional instability, suicidal ideation/attempt Endocrine Endocrine: DENIES: polydipsia, polyphagia Hematologic/Lymphatic Hematologic/Lymphatic: DENIES: frequent nosebleeds, lymphadenopathy Allergic/Immunological Allergic/Immunoligical: DENIES: allergic reactions, hives Physical Exam General General Nourishment: well nourished, well developed, appears stated age, no acute distress, adult General Body Habitus: well groomed Vitals and Pain First Documented Vital Signs Date Time Temp Pulse Resp B/P Pulse Ox O2 Delivery O2 Flow Rate FiO2 08/13/16 09:05 97.8 122 20 132/71 99 Room Air Weight: Kilograms: 75.500 Height (feet): 5 Height (inches): 8.00 Triage Pain Scale: RN VS reviewed by Provider: Yes Normal Exams: Head: Normocephalic w/o trauma Eyes: Pupils are PERRLA w/ EOMI, No scleral icterus, irritation, or foreign bodies noted ENMT: No facial trauma, nasal exudates, pharyngeal erythema, or exudates are noted Dental: No fractured, loose, or missing teeth noted Neck: Full range of motion, without adenopathy, JVD, bruits or thyromegaly Chest/Resp: Clear all aburto, with good airflow, and symmetry bilaterally CV: Regular rate and rhythm, without murmur or gallop, Pulses 2+ all extremities, capillary refill, <2 seconds all ext., no pedal edema noted Abdomen: Bowel sounds positive, soft, non-tender, non-distended, no hepatosplenomegaly, masses or bruits noted Lymphatic: No lymphadenopathy, or lymphedema noted Musculoskeletal: No tenderness, or deformity noted, good range of motion, all extremities Integumentary: No rashes, hives, or bruising noted, hair and nails, without abnormality Neurologic: Patient is alert, and oriented, cranial nerves, motor/sensory/ cerebellar, exams w/o gross deficits, to observation Psychiatric: Patient exhibits, appropriate attention, emotion and affect Integumentary (brief) Comments Multiple old track patel located over bilateral antecubitals without abscess or infection. Differential Diagnoses Considering: Medication Effect, Metabolic, Other (methamphetamine abuse/ dehydration) Progress Results/Orders Orders Procedure Category Date Status Time Cbc W/Auto LAB 08/13/16 Complete Diff-Reflex Manual Cmp - Comprehensive LAB 08/13/16 Complete Metabolic Troponin I W LAB 08/13/16 Complete Hemolysis Index EKG EKG 08/13/16 Taken Chest 1 View RAD 08/13/16 Resulted 09:30 Normal Saline (Normal PHA 08/13/16 Complete Saline Iv) 09:30 Potassium Chloride PHA 08/13/16 Complete (Kdur) 11:30 Lab Results Laboratory Tests Test 08/13/16 10:03 White Blood Count 10.2T/MM3 Red Blood Count 5.07M/MM3 Hemoglobin 14.3GM/DL Hematocrit 42.3% Mean Corpuscular Volume 83.4UM3 Mean Corpuscular Hemoglobin 28.2UUG Mean Corpuscular Hemoglobin Concent 33.8GM/DL RDW Standard Deviation 40.4FL Platelet Count 263T/MM3 Mean Platelet Volume 9.9UM3 Immature Granulocyte % (Auto) 0.1% Neutrophils (%) (Auto) 65.2% Lymphocytes (%) (Auto) 23.7% Monocytes (%) (Auto) 7.8% Eosinophils (%) (Auto) 2.8% Basophils (%) (Auto) 0.4% Absolute Immature Granulocyte (auto 0.01T/MM3 Absolute Neutrophils (auto) 6.7T/MM3 Absolute Lymphocytes (auto) 2.4T/MM3 Absolute Monocytes (auto) 0.8T/MM3 Absolute Eosinophils (auto) 0.3T/MM3 Absolute Basophils (auto) 0.0T/MM3 Turbidity < 20 Sodium Level 145MEQ/L Potassium Level 3.3MEQ/L Chloride Level 106MEQ/L Carbon Dioxide Level 28MEQ/L Anion Gap 11MEQ/L Blood Urea Nitrogen 17.0MG/DL Creatinine 0.7MG/DL Glomerular Filtration Rate Calc 136 BUN/Creatinine Ratio 24RATIO Glucose Level 96MG/DL Calculated Osmolality 281MOSM/KG Calcium Level 9.7MG/DL Total Bilirubin 0.60MG/DL Icterus Index < 2 Aspartate Amino Transf (AST/SGOT) 113U/L Alanine Aminotransferase (ALT/SGPT) 221U/L Alkaline Phosphatase 103U/L Troponin I < 0.012ng/ml Total Protein 7.4G/DL Albumin 4.2G/DL Globulin 3.2G/DL Albumin/Globulin Ratio 1.3RATIO Chemistry Specimen Hemolysis < 15 Medications Current ED Medications Sodium Chloride (Normal Saline IV) 1,000 ml @ 999 mls/hr Q1H1M ONCE IV Last administered on 08/13/16t 10:08; Start 08/13/16 at 09:30; Stop 08/13/16 at 10:30 ; Status DC Potassium Chloride (Kdur) 40 meq O ONCE PO ; Start 08/13/16 at 11:30; Stop at 11:31; Status DC Progress Progress Patient is given 1 L normal saline intravenously. Patient's laboratory evaluation is unremarkable. Patient refuses to give urine for urinalysis or urine drug screen. Patient requests to be discharged home at this time. Patient denies homicidal/suicidal ideation or plan. No intentional self injury or self-harm. Patient requests to leave the emergency department at this time. Patient is discharged home in accordance with his request. Patient is to follow up as instructed. Patient is to return to the emergency department if his condition worsens or changes in any manner. Patient is in agreement with the current plan of management. Patient is counseled to avoid the use of illicit substances. Patient's heart rate is 100 bpm taken by me immediately prior to discharge from the emergency department. EKG EKG : Rate: >100 Rhythm: sinus [place]: normal QRS: normal Intervals: normal ST/T: normal Interpreted by: signing physician Xray Xray : Xray: CXR Portable Interpretation: Normal, Interpreted by Me CARLA SMALL DO Aug 13, 2016 11:15
[2016-08-13] MEDS ORDERED: POTASSIUM CHLORIDE 20 MEQ TABLET PO ONE (11:30)
--- NOTE | 2016-08-13 11:35 | NUR ---
MEDICATION PT REFUSED POTASSIUM PILLS AT THIS TIME
--- NOTE | 2016-08-13 11:38 | NUR ---
IV IV DC'D WITH CATH INTACT
[2016-08-13 11:40] VITALS: BP 124/78; PULSE 107; RESP 22; TEMP 97.8; O2SAT 100
--- NOTE | 2016-08-13 11:40 | NUR ---
STATUS PT DOES REPORT HE FEELS A LITTLE BETTER AFTER THE IVF. PT REMAINS SHAKY AND UNABLE TO STAY FOCUSED AND NEEDS CONSTANT REDIRECTION. PT CONTINUES TO REFUSE MEDS AT THIS TIME. DISMISSAL INSTRUCTIONS REVIEWED AND PT LEFT DEPARTMENT AMBUALTORY
== END 2016-08-13 11:40 | disposition home or self-care (01) ==
LOC: ED 09:02
DX: R42 Dizziness and giddiness (principal); F15.10 Other stimulant abuse, uncomplicated
CPT/HCPCS: 36415; 71010; 80053; 84484; 85025; 93005; 99284; J7030